=== PATIENT | female | born 1945 | race Caucasian/White ===

== ENCOUNTER → 2021-11-28 | Outpatient (CLI) | payer MEDICARE, OTHER, SELFPAY ==
--- NOTE | 2021-11-28 10:00 | PET_ITS ---
EXAMINATION: FDG PET-CT INDICATIONS: A 76-year-old female with history of colorectal carcinoma presenting for apparent initial staging examination. COMPARISON EXAMINATION: CT of the chest, abdomen and pelvis report dated 11/23/21 INDEX LESION SIZE SUV INTERPRETATION Right upper pelvis 25.2-mm 16.4 Fulfills quantitative criteria for viable neoplasm Right and left lobe liver segment IV, , VII 21.2-mm 6.5 (max) ratio > 2.0 Fulfills quantitative criteria for viable neoplasm TECHNIQUE: Following the intravenous administration of 13.3 mCi of F-18 deoxyglucose via the left antecubital fossa, multiplanar image acquisitions of the neck, chest, abdomen and pelvis to level of mid thigh, obtained at one hour post radiopharmaceutical administration contemporaneously interpreted with the current CT of the neck, chest, abdomen and pelvis, to level of mid thigh, dated 11/28/[address] of the chest, abdomen and pelvis report dated 11/23/21 reveals: BLOOD GLUCOSE LEVEL:?? 137 mg/dl?HEIGHT:?61 inches?WEIGHT: 127 lbs. FINDINGS: Head/Neck: There is no evidence of abnormal increased glucose metabolism in the pharyngeal mucosal space, parapharyngeal space, bilateral-lateral and anterior neck, hypopharynx and distribution of the laryngeal structures. The visualized portion of the cerebral cortical-subcortical structures demonstrate symmetric and preserved glucose metabolism. CHEST: There is no quantitative scintigraphic evidence of abnormal increased glucose metabolism within the context of the bilateral hemithorax pulmonary parenchyma, right and left hemithorax pleural interface, mediastinal structures and right-left thoracic perihilum. Prominent radiopharmaceutical concentration is identified in the left ventricular myocardium commensurate with the [place]. There is facilitated FDG uptake noted in the descending thoracic aorta commensurate with activated leukocytes associated with atherosclerotic plaque formation. Pertinent chest CT findings are as follows. Coronary arterial calcification is observed. Both ascending and descending thoracic aortic calcification is noted without evidence of dilatation, aneurysm. Bilateral axillary and mediastinal soft tissue is non-glucose avid. There are no parenchymal densities-nodules defined in the right and left hemithorax with quantitatively significant increased FDG uptake. Abdomen/Pelvis: Facilitated radiopharmaceutical concentration is defined in the right upper pelvic mesentery with a calculated maximal standard uptake value of 16.4. Uptake appears adjacent to postsurgical change. The calculated maximal standard uptake value is 16.4. The maximal axial diameter of the metabolic, morphologic abnormality is 25.2-mm. Increased glucose metabolism is identified in the left and right lobe of the hepatic (2.7) parenchyma involving segment IV, and VII. The calculated maximal standard uptake value is 6.5, with a lesion to liver background ratio greater than 2.0. The maximal axial diameter of the largest metabolic, morphologic abnormality is 21.2-mm. Normal physiologic distribution of the radiopharmaceutical is apparent in the splenic parenchyma, both renal units, bladder and visualized intestinal tract. Diffuse radiopharmaceutical concentration is noted in all four quadrants of the abdomen and pelvis. The abdomen and pelvis CT findings are as follows. Cholelithiasis appears evident. There is atherosclerotic calcification defined in the abdominal aorta without evidence of dilatation-aneurysm formation. Pelvic arterial calcification is encountered. Colonic diverticulosis is noted without evidence of diverticulitis. Beam hardening artifact attributed to the left hip arthroplasty compromises evaluation of CT of the pelvis. Bilateral fat containing inguinal hernias are noted. Right and left inguinal soft tissue with fatty hilus is non-glucose avid. Calcifications are defined in the abdominal-pelvic mesentery. Skeletal: A left hip arthroplasty is defined. Degenerative changes are noted in the cervical, thoracic and lumbar spine without evidence of increased radiopharmaceutical concentration. There are no well-defined sclerotic-lytic changes manifest on review of the appendicular-axial skeletal structures. PET/PET/CT Tumor Base -Thigh Init IMPRESSION: 1. ABNORMAL EXAMINATION INDICATIVE OF MALIGNANT VIABLE NEOPLASM. 2. 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 3 the. Facilitated GLUCOSE metabolism noted in the left and right lobe of the hepatic parenchyma fulfill quantitative criteria for viable hepatic parenchymal metastatic disease. (Jt et al, Archives of Surgery, [id number] 1998). Electronic Signature Carlos Padilla D.O. Accurate Quantification of SUVs for this report are calculated using the exclusive [employer]. ([place] Patent No. [id number]). Standardization and correction of the FDG SUV metric via [employer] technology allow for vendor non-specific objective quantitative examination comparison and optimization of the sensitivity and specificity of the FDG PET-CT examination. Electronically Signed: Carlos Padilla, at 22:57 EDT ,
== END | disposition home or self-care (01) ==
DX: C18.1 Malignant neoplasm of appendix (principal); C78.7 Secondary malignant neoplasm of liver and intrahepatic bile duct
CPT/HCPCS: 78815; A9552